=== PATIENT | male | born 1985 | race Caucasian/White ===

== ENCOUNTER 2024-07-23 15:06 | Emergency (ER) | payer OTHER, SELFPAY ==
[2024-07-23] VITALS (14 sets, daily range): BP systolic 116–142; BP diastolic 74–99; PULSE 87–112; RESP 13–24; TEMP 36.9–37.4; O2SAT 93–100
--- NOTE | 2024-07-23 15:55 | EKG_ITS ---
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
[2024-07-23 16:09] LABS: Appearance Urine UA CLEAR; Bilirubin Urine UA NEGATIVE (NEGATIVE); Color Urine UA YELLOW; Glucose Urine UA NEGATIVE (Negative); Ketones Urine UA NEGATIVE (NEGATIVE); Leukocyte Esterase Urine UA NEGATIVE (NEGATIVE); Nitrite Urine UA NEGATIVE (Negative); Occult Blood Urine UA TRACE-INTACT (Negative); Protein Urine UA NEGATIVE (Negative); Specific Gravity Urine UA <=1.005 (1.000-1.035); Urobilinogen Urine UA 0.2 E.U./dL (0.2)
[2024-07-23 16:11] LABS: Ur Creatinine Normal (Normal); Ur Specific Gravity Normal (Normal); Urine THC Negative (Negative); Urine pH Normal (Normal)
[2024-07-23 16:12] LABS: Urine Amphetamines Negative (Negative); Urine Barbiturates Negative (Negative); Urine Benzodiazepines Positive (Negative); Urine Cocaine Negative (Negative); Urine MDMA Negative (Negative); Urine Methadone Negative (Negative); Urine Opiates Negative (Negative); Urine Oxycodone Negative (Negative); Urine Phencyclidine Negative (Negative); Urine Tricyclic Antidepressant Negative (Negative)
[2024-07-23 16:14] LABS: Bacteria Urine Occasional (0-1); RBC Urine 0-1/HPF (0-5/HPF); Squamous Epithelial Cell Urine 0-1 /HPF (0-5/HPF); Urine Volume 10mL (spun); WBC Urine 0-1/HPF (0-5/HPF)
[2024-07-23 16:15] LABS: Culture Indicated Urine Cult Not Indicated
[2024-07-23 16:18] LABS: Add Manual Diff / Slide Review NO; Basophils Absolute Auto 200 /uL (0-100); Basophils Percent Auto 2.1 % (0-2); Eosinophils Absolute Auto 200 /uL (0-450); Eosinophils Percent Auto 2.2 % (2-4); Hematocrit 46.6 % (41-53); Hemoglobin 15.9 g/dL (13.5-17.5); Lymphocytes Absolute Auto 2700 /uL (1100-4500); Lymphocytes Percent Auto 32.9 % (25-40); Mean Corpuscular HGB Conc 34.1 % (30-36); Mean Corpuscular Hemoglobin 31.7 PG (26-34); Monocytes Absolute Auto 800 /uL (0-900); Neutrophils Absolute Auto 4400 /uL (1500-7000); Neutrophils Percent Auto 52.8 % (50-75); Platelet Count 408 X10^3/uL (150-400); Red Blood Cell Count 5.01 X10^6/uL (4.5-5.9); Red Cell Distribution Width 15.1 % (11.6-14.8); White Blood Cell Count 8.3 X10^3/uL (4.5-11.0)
[2024-07-23 16:24] LABS: Acetaminophen < 10 ug/mL (10-30); Alanine Aminotransferase 49 IU/L (<50); Albumin 5.1 g/dL (3.5-5.0); Albumin Globulin Ratio 1.5 (1.0-2.8); Alkaline Phosphatase 89 U/L (38-126); Aspartate Aminotransferase 53 IU/L (17-59); Bilirubin Total 0.6 mg/dL (0.2-1.3); Blood Urea Nitrogen 7 mg/dL (9-20); Calcium 9.2 mg/dL (8.4-10.2); Carbon Dioxide 23 mmol/L (22-32); Chloride 101 mmol/L (98-107); Estimated Glomerular Filt Rate > 60 mL/min (>60); Globulin 3.3 g/dL (1.7-4.1); Glucose 118 mg/dL (70-99); HEMOLYSIS 17 (0-50); Potassium 4.7 mmol/L (3.4-5.1); Salicylate < 1.0 mg/dL (<20); Sodium 140 mmol/L (137-145); Total Protein 8.4 g/dL (6.3-8.2)
[2024-07-23] MEDS: PHENobarbital 65 MG/ML VIAL 260 MG IV (16:29)
[2024-07-23 16:31] LABS: Ethanol (ETOH) 350 mg/dL
[2024-07-23] MEDS: LACTATED RINGERS 1,000 ML 1000 ML IV (16:33)
[2024-07-23 16:45] LABS: Free T4, Direct Thyroxine 1.03 ng/dL (0.78-2.19)
--- NOTE | 2024-07-23 16:49 | PC.NURSE ---
Pt brought to ED today by friend for ETOH detox. Pt states that he has been trying to ween himself off ETOH and today he drank more than he has in the past few days. Pt reports that he normally drinks 1/5 of vodka per day. Arrived to dept rigorous & diaphoretic. Pt having difficulty answering questions when he arrived to dept but has since resolved. Pt a&ox4 at this time, easily arousable, responds appropriately and answers all questions. Pt states that his friend has found a detox bed for him in [place].
--- NOTE | 2024-07-23 16:50 | ED_ITS ---
HPI - Alcohol <Bernarda Joe DO - Last Filed: 07/24/24 09:05> General Chief Complaint: Toxicology Problem Stated Complaint: alcohol detox Time Seen by Provider: 07/23/24 16:50 Source: patient, RN notes reviewed and old records reviewed Mode of arrival: Ambulatory Limitations: no limitations History of Present Illness HPI narrative: 39-year-old male history of alcohol use, neurofibromatosis type 1, depression who presents with complaint of alcohol abuse and withdrawal. Patient states he would like to stop drinking he states his last drink was early this morning. He states he has been drinking about a 5th daily. States he was sober for several years but his fiancee at the time and he has since started drinking it. State he has been having tremors and shakes, nausea and vomiting, feeling sweaty, denies any chest pain or shortness of breath. Denies any abdominal back or flank pain. Denies any loss of bowel or bladder control. Patient states he has a remote history of a seizure related to alcohol withdrawal a long time ago, has not had any hallucinations or seizure activity. Patient states he was supposed to be on citalopram daily. 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 He was 1 that is being followed close to his sacrum. States no known drug allergies. Vapes tobacco occasionally, states marijuana denies any IV or other recreational drugs. Patient states his friend that brought him found a bed for him during our evaluation at a detox facility but that he was supposed to be there by 6:00 p.m.. Related Data Allergies Allergy/AdvReac Type Severity Reaction Status Date / Time No Known Drug Allergies Allergy Verified 07/23/24 15:12 Review of Systems <Bernarda Joe DO - Last Filed: 07/24/24 09:05> Review of Systems ROS Unobtainable: All systems reviewed & are unremarkable except as noted in HPI and below Patient History <Bernarda Joe DO - Last Filed: 07/24/24 09:05> Social History Smoking Status: Unknown if ever smoked Smoking Status: Unknown if ever smoked Exam <Bernarda Joe DO - Last Filed: 07/24/24 09:05> Narrative Exam Narrative: GENERAL: Alert and oriented x three, male in mild distress. Patient is mildly disheveled. Patient had already received phenobarbital. HEENT: Head normocephalic, atraumatic, EOMI, pupils reactive, face symmetric, moist mucous membranes NECK: Supple, full range of motion CARDIOVASCULAR: Slightly tachycardic but Regular rate and rhythm without murmurs, rubs or gallops. No JVD. No edema bilateral lower extremities. RESPIRATORY: Breath sounds equal bilaterally, no wheezes rales or rhonchi. No tachypnea accessory muscle use. ABDOMEN: Soft, nontender. Normoactive bowel sounds all 4 quadrants. No guarding or rebound, rigidity, no mass : No CVA tenderness EXTREMITIES: Normal range of motion, no clubbing or edema. Neurovascularly intact NEUROLOGICAL: Cranial nerves II through XII grossly intact. Moving all extremities SKIN: Warm, dry, no petechiae, no rashes or lesions. Initial Vital Signs Initial Vital Signs: Vital Signs Temperature 99.4 F 07/23/24 15:14 Respiratory Rate 07/23/24 15:14 Pulse Oximetry 100 07/23/24 15:14 Oxygen Delivery Method Room Air 07/23/24 15:14 <Jonny Elizalde, DO - Last Filed: 07/23/24 21:22> Initial Vital Signs Initial Vital Signs: Vital Signs Temperature 99.4 F 07/23/24 15:14 Respiratory Rate 07/23/24 15:14 Pulse Oximetry 100 07/23/24 15:14 Oxygen Delivery Method Room Air 07/23/24 15:14 Course <Bernarda Joe, DO - Last Filed: 07/24/24 09:05> Orders Ordered: Discontinued Medications Lactated Ringer's (Lactated Ringers) 1,000 mls @ 1,000 mls/hr IV BOLUS ONE Stop: 07/23/24 17:19 Last Infusion: 07/23/24 17:37 Dose: Infused Documented By: Admin: 07/23/24 16:33 Dose: 1,000 mls/hr Documented By: NOAH Ondansetron HCl (Ondansetron 4 Mg/2 Ml Inj) 4 mg IV NOW ONE Stop: 07/23/24 16:09 Last Admin: 07/23/24 18:39 Dose: Not Given Documented By: KELBY Phenobarbital (Phenobarbital 65 Mg/Ml Vial) 260 mg IV NOW ONE Stop: 07/23/24 16:21 Last Admin: 07/23/24 16:29 Dose: 260 mg Documented By: NOAH Vital Signs Vital signs: Vital Signs - 8 hr 07/23/24 15:14 07/23/24 15:35 07/23/24 15:41 Temperature 99.4 F 98.4 F Pulse Rate 105 H 103 H Respiratory Rate 24 14 23 Blood Pressure 142/90 H Pulse Oximetry 100 93 96 Oxygen Delivery Method Room Air Room Air 07/23/24 16:00 07/23/24 16:01 07/23/24 16:01 Temperature Pulse Rate 109 H 112 H Respiratory Rate 24 21 Blood Pressure 142/99 H Pulse Oximetry 96 95 Oxygen Delivery Method 07/23/24 16:30 07/23/24 16:30 07/23/24 17:00 Temperature Pulse Rate 97 H Respiratory Rate 20 Blood Pressure 131/81 133/85 Pulse Oximetry 95 Oxygen Delivery Method 07/23/24 17:00 07/23/24 17:30 07/23/24 17:30 Temperature Pulse Rate 92 H 90 Respiratory Rate 17 20 Blood Pressure 124/84 Pulse Oximetry 94 96 Oxygen Delivery Method 07/23/24 18:00 07/23/24 18:00 07/23/24 18:30 Temperature Pulse Rate 87 94 H Respiratory Rate 17 13 Blood Pressure 119/78 118/78 Pulse Oximetry 95 97 Oxygen Delivery Method Room Air 07/23/24 19:00 07/23/24 19:30 07/23/24 20:00 Temperature Pulse Rate 92 H 91 H 99 H Respiratory Rate 16 21 18 Blood Pressure 119/74 116/81 Pulse Oximetry 96 Oxygen Delivery Method 07/23/24 20:30 Temperature Pulse Rate 107 H Respiratory Rate 16 Blood Pressure Pulse Oximetry Oxygen Delivery Method <Jonny Elizalde, DO - Last Filed: 07/23/24 21:22> Orders Ordered: Discontinued Medications Lactated Ringer's (Lactated Ringers) 1,000 mls @ 1,000 mls/hr IV BOLUS ONE Stop: 07/23/24 17:19 Last Infusion: 07/23/24 17:37 Dose: Infused Documented By: Admin: 07/23/24 16:33 Dose: 1,000 mls/hr Documented By: NOAH Ondansetron HCl (Ondansetron 4 Mg/2 Ml Inj) 4 mg IV NOW ONE Stop: 07/23/24 16:09 Last Admin: 07/23/24 18:39 Dose: Not Given Documented By: SB Phenobarbital (Phenobarbital 65 Mg/Ml Vial) 260 mg IV NOW ONE Stop: 07/23/24 16:21 Last Admin: 07/23/24 16:29 Dose: 260 mg Documented By: MPO Vital Signs Vital signs: Vital Signs - 8 hr 07/23/24 15:14 07/23/24 15:35 07/23/24 15:41 Temperature 99.4 F 98.4 F Pulse Rate 105 H 103 H Respiratory Rate 24 14 23 Blood Pressure 142/90 H Pulse Oximetry 100 93 96 Oxygen Delivery Method Room Air Room Air 07/23/24 16:00 07/23/24 16:01 07/23/24 16:01 Temperature Pulse Rate 109 H 112 H Respiratory Rate 24 21 Blood Pressure 142/99 H Pulse Oximetry 96 95 Oxygen Delivery Method 07/23/24 16:30 07/23/24 16:30 07/23/24 17:00 Temperature Pulse Rate 97 H Respiratory Rate 20 Blood Pressure 131/81 133/85 Pulse Oximetry 95 Oxygen Delivery Method 07/23/24 17:00 07/23/24 17:30 07/23/24 17:30 Temperature Pulse Rate 92 H 90 Respiratory Rate 17 20 Blood Pressure 124/84 Pulse Oximetry 94 96 Oxygen Delivery Method 07/23/24 18:00 07/23/24 18:00 07/23/24 18:30 Temperature Pulse Rate 87 94 H Respiratory Rate 17 13 Blood Pressure 119/78 118/78 Pulse Oximetry 95 97 Oxygen Delivery Method Room Air 07/23/24 19:00 07/23/24 19:30 07/23/24 20:00 Temperature Pulse Rate 92 H 91 H 99 H Respiratory Rate 16 21 18 Blood Pressure 119/74 116/81 Pulse Oximetry 96 Oxygen Delivery Method 07/23/24 20:30 Temperature Pulse Rate 107 H Respiratory Rate 16 Blood Pressure Pulse Oximetry Oxygen Delivery Method MDM - Alcohol <Bernarda Joe, - Last Filed: 07/24/24 09:05> Lab Data 07/23/24 15:35 07/23/24 15:35 Labs: Lab Results 07/23/24 07/23/24 07/23/24 Range/Units 15:35 15:56 15:56 WBC 8.3 (4.5-11.0) X10^3/uL RBC 5.01 (4.5-5.9) X10^6/uL Hgb 15.9 (13.5-17.5) g/dL Hct 46.6 (41-53) % MCV 93.0 (80-100) fL MCH 31.7 (26-34) PG MCHC 34.1 (30-36) % RDW 15.1 H (11.6-14.8) % Plt Count 408 H (150-400) X10^3/uL Neut % (Auto) 52.8 (50-75) % Lymph % (Auto) 32.9 (25-40) % [place] % (Auto) 10.0 (3-14) % Eos % (Auto) 2.2 (2-4) % Baso % (Auto) 2.1 H (0-2) % Neut # (Auto) 4400 (1952-3276) /uL Lymph # (Auto) 2700 (7464-9843) /uL [place] # (Auto) 800 (0-900) /uL Eos # (Auto) 200 (0-450) /uL Baso # (Auto) 200 H (0-100) /uL Sodium 140 (137-145) mmol/L Potassium 4.7 (3.4-5.1) mmol/L Chloride 101 (98-107) mmol/L Carbon Dioxide 23 (22-32) mmol/L BUN 7 L (9-20) mg/dL Creatinine 0.88 (0.66-1.25) mg/dL Estimated GFR > 60 (>60) mL/min BUN/Creatinine Ratio 8.0 (6-22) Glucose 118 H (70-99) mg/dL Calcium 9.2 (8.4-10.2) mg/dL Total Bilirubin 0.6 (0.2-1.3) mg/dL AST 53 (17-59) IU/L ALT 49 (<50) IU/L Alkaline Phosphatase 89 (38-126) U/L Total Protein 8.4 H (6.3-8.2) g/dL Albumin 5.1 H (3.5-5.0) g/dL Globulin 3.3 (1.7-4.1) g/dL Albumin/Globulin Ratio 1.5 (1.0-2.8) TSH 0.311 L (0.47-4.68) uIU/mL Free T4 1.03 (0.78-2.19) ng/dL Urine Color Yellow Urine Appearance Clear Urine pH 6.0 Normal (4.5-8.0) Ur Specific [place] <=1.005 (1.000-1.035) Urine Protein Negative (Negative) Urine Glucose (UA) Negative (Negative) g/dL Urine Ketones Negative (NEGATIVE) Urine Occult Blood Trace-intact (Negative) Urine Nitrate Negative (Negative) Urine Bilirubin Negative (NEGATIVE) Urine Urobilinogen 0.2 (0.2) E.U./dL Ur Leukocyte Esterase Negative (NEGATIVE) Urine RBC 0-1/hpf (0-5/HPF) Urine WBC 0-1/hpf (0-5/HPF) Ur Squamous Epith Cells 0-1 /hpf (0-5/HPF) Urine Bacteria Occasional (0-1) (None) Ur Culture Indicated? Cult not indicated Vol Urine Centrifuged 10ml (spun) Salicylates < 1.0 (<20) mg/dL U Opiates 300ng/mL cut Negative (Negative) Ur Oxycodone Screen Negative (Negative) Urine Methadone Screen Negative (Negative) Acetaminophen < 10 (10-30) ug/mL Ur Barbiturates Screen Negative (Negative) U Tricyclic Antidepress Negative (Negative) Ur Phencyclidine Scrn Negative (Negative) Ur Amphetamines Screen Negative (Negative) U Methamphetamines Scrn Negative (Negative) Ur MDMA Scrn (Ecstasy) Negative (Negative) U Benzodiazepines Scrn Positive H (Negative) Urine Cocaine Screen Negative (Negative) U Marijuana (THC) Screen Negative (Negative) Urine Specific [place] Normal (Normal) Ethyl Alcohol 350 H ( - 10) mg/dL Ur Creatinine Normal (Normal) 07/23/24 Range/Units 19:00 WBC (4.5-11.0) X10^3/uL RBC (4.5-5.9) X10^6/uL Hgb (13.5-17.5) g/dL Hct (41-53) % MCV (80-100) fL MCH (26-34) PG MCHC (30-36) % RDW (11.6-14.8) % Plt Count (150-400) X10^3/uL Neut % (Auto) (50-75) % Lymph % (Auto) (25-40) % [place] % (Auto) (3-14) % Eos % (Auto) (2-4) % Baso % (Auto) (0-2) % Neut # (Auto) (4539-9283) /uL Lymph # (Auto) (5490-7327) /uL [place] # (Auto) (0-900) /uL Eos # (Auto) (0-450) /uL Baso # (Auto) (0-100) /uL Sodium (137-145) mmol/L Potassium (3.4-5.1) mmol/L Chloride (98-107) mmol/L Carbon Dioxide (22-32) mmol/L BUN (9-20) mg/dL Creatinine (0.66-1.25) mg/dL Estimated GFR (>60) mL/min BUN/Creatinine Ratio (6-22) Glucose (70-99) mg/dL Calcium (8.4-10.2) mg/dL Total Bilirubin (0.2-1.3) mg/dL AST (17-59) IU/L ALT (<50) IU/L Alkaline Phosphatase (38-126) U/L Total Protein (6.3-8.2) g/dL Albumin (3.5-5.0) g/dL Globulin (1.7-4.1) g/dL Albumin/Globulin Ratio (1.0-2.8) TSH (0.47-4.68) uIU/mL Free T4 (0.78-2.19) ng/dL Urine Color Urine Appearance Urine pH (4.5-8.0) Ur Specific [place] (1.000-1.035) Urine Protein (Negative) Urine Glucose (UA) (Negative) g/dL Urine Ketones (NEGATIVE) Urine Occult Blood (Negative) Urine Nitrate (Negative) Urine Bilirubin (NEGATIVE) Urine Urobilinogen (0.2) E.U./dL Ur Leukocyte Esterase (NEGATIVE) Urine RBC (0-5/HPF) Urine WBC (0-5/HPF) Ur Squamous Epith Cells (0-5/HPF) Urine Bacteria (None) Ur Culture Indicated? Vol Urine Centrifuged Salicylates (<20) mg/dL U Opiates 300ng/mL cut (Negative) Ur Oxycodone Screen (Negative) Urine Methadone Screen (Negative) Acetaminophen (10-30) ug/mL Ur Barbiturates Screen (Negative) U Tricyclic Antidepress (Negative) Ur Phencyclidine Scrn (Negative) Ur Amphetamines Screen (Negative) U Methamphetamines Scrn (Negative) Ur MDMA Scrn (Ecstasy) (Negative) U Benzodiazepines Scrn (Negative) Urine Cocaine Screen (Negative) U Marijuana (THC) Screen (Negative) Urine Specific [place] (Normal) Ethyl Alcohol 264 H ( - 10) mg/dL Ur Creatinine (Normal) ECG Data Attestation: I personally reviewed and interpreted this ECG as follows: Prior ECG tracings: available for review Interpretation: Sinus tachycardia rate of 110, VT 114 QRS is 78 QTC of 443, no acute ST elevation. No prior for comparison MDM Narrative Medical decision making narrative: EKG shows sinus tachycardia. ETOH is positive at 350, Tylenol and salicylate are negative, UDS is positive for benzos. Labs show normal white count hemoglobin, platelets of 408. Electrolytes, appropriate BUN 7 creatinine 0.88 glucose is 118 LFTs are overall appropriate total protein is 8.4 albumin 5.1 TSH is 0.311, free T4 is 1.03. UA shows trace blood, 1 red cell 1 white cell 1 squamous occasional bacteria. Patient is medically cleared for detox. [facility] has potential beds we will review after 7:00 p.m.. They typically require ETOH to be less than 250. Patient is agreeable and found bed with his friend on their own. Patient had lactated Ringer's 1 L as well as phenobarbital 260 mg. Patient is feeling much improved afterwards his vitals have improved overall. Patient signed to Dr. Elizalde while awaiting potential detox bed. <Jonny Elizalde, DO - Last Filed: 07/23/24 21:22> Lab Data Labs: Lab Results 07/23/24 07/23/24 07/23/24 Range/Units 15:35 15:56 15:56 WBC 8.3 (4.5-11.0) X10^3/uL RBC 5.01 (4.5-5.9) X10^6/uL Hgb 15.9 (13.5-17.5) g/dL Hct 46.6 (41-53) % MCV 93.0 (80-100) fL MCH 31.7 (26-34) PG MCHC 34.1 (30-36) % RDW 15.1 H (11.6-14.8) % Plt Count 408 H (150-400) X10^3/uL Neut % (Auto) 52.8 (50-75) % Lymph % (Auto) 32.9 (25-40) % [place] % (Auto) 10.0 (3-14) % Eos % (Auto) 2.2 (2-4) % Baso % (Auto) 2.1 H (0-2) % Neut # (Auto) 4400 (3430-8820) /uL Lymph # (Auto) 2700 (0564-3672) /uL [place] # (Auto) 800 (0-900) /uL Eos # (Auto) 200 (0-450) /uL Baso # (Auto) 200 H (0-100) /uL Sodium 140 (137-145) mmol/L Potassium 4.7 (3.4-5.1) mmol/L Chloride 101 (98-107) mmol/L Carbon Dioxide 23 (22-32) mmol/L BUN 7 L (9-20) mg/dL Creatinine 0.88 (0.66-1.25) mg/dL Estimated GFR > 60 (>60) mL/min BUN/Creatinine Ratio 8.0 (6-22) Glucose 118 H (70-99) mg/dL Calcium 9.2 (8.4-10.2) mg/dL Total Bilirubin 0.6 (0.2-1.3) mg/dL AST 53 (17-59) IU/L ALT 49 (<50) IU/L Alkaline Phosphatase 89 (38-126) U/L Total Protein 8.4 H (6.3-8.2) g/dL Albumin 5.1 H (3.5-5.0) g/dL Globulin 3.3 (1.7-4.1) g/dL Albumin/Globulin Ratio 1.5 (1.0-2.8) TSH 0.311 L (0.47-4.68) uIU/mL Free T4 1.03 (0.78-2.19) ng/dL Urine Color Yellow Urine Appearance Clear Urine pH 6.0 Normal (4.5-8.0) Ur Specific [place] <=1.005 (1.000-1.035) Urine Protein Negative (Negative) Urine Glucose (UA) Negative (Negative) g/dL Urine Ketones Negative (NEGATIVE) Urine Occult Blood Trace-intact (Negative) Urine Nitrate Negative (Negative) Urine Bilirubin Negative (NEGATIVE) Urine Urobilinogen 0.2 (0.2) E.U./dL Ur Leukocyte Esterase Negative (NEGATIVE) Urine RBC 0-1/hpf (0-5/HPF) Urine WBC 0-1/hpf (0-5/HPF) Ur Squamous Epith Cells 0-1 /hpf (0-5/HPF) Urine Bacteria Occasional (0-1) (None) Ur Culture Indicated? Cult not indicated Vol Urine Centrifuged 10ml (spun) Salicylates < 1.0 (<20) mg/dL U Opiates 300ng/mL cut Negative (Negative) Ur Oxycodone Screen Negative (Negative) Urine Methadone Screen Negative (Negative) Acetaminophen < 10 (10-30) ug/mL Ur Barbiturates Screen Negative (Negative) U Tricyclic Antidepress Negative (Negative) Ur Phencyclidine Scrn Negative (Negative) Ur Amphetamines Screen Negative (Negative) U Methamphetamines Scrn Negative (Negative) Ur MDMA Scrn (Ecstasy) Negative (Negative) U Benzodiazepines Scrn Positive H (Negative) Urine Cocaine Screen Negative (Negative) U Marijuana (THC) Screen Negative (Negative) Urine Specific [place] Normal (Normal) Ethyl Alcohol 350 H ( - 10) mg/dL Ur Creatinine Normal (Normal) 07/23/24 Range/Units 19:00 WBC (4.5-11.0) X10^3/uL RBC (4.5-5.9) X10^6/uL Hgb (13.5-17.5) g/dL Hct (41-53) % MCV (80-100) fL MCH (26-34) PG MCHC (30-36) % RDW (11.6-14.8) % Plt Count (150-400) X10^3/uL Neut % (Auto) (50-75) % Lymph % (Auto) (25-40) % [place] % (Auto) (3-14) % Eos % (Auto) (2-4) % Baso % (Auto) (0-2) % Neut # (Auto) (8394-9165) /uL Lymph # (Auto) (5162-6649) /uL [place] # (Auto) (0-900) /uL Eos # (Auto) (0-450) /uL Baso # (Auto) (0-100) /uL Sodium (137-145) mmol/L Potassium (3.4-5.1) mmol/L Chloride (98-107) mmol/L Carbon Dioxide (22-32) mmol/L BUN (9-20) mg/dL Creatinine (0.66-1.25) mg/dL Estimated GFR (>60) mL/min BUN/Creatinine Ratio (6-22) Glucose (70-99) mg/dL Calcium (8.4-10.2) mg/dL Total Bilirubin (0.2-1.3) mg/dL AST (17-59) IU/L ALT (<50) IU/L Alkaline Phosphatase (38-126) U/L Total Protein (6.3-8.2) g/dL Albumin (3.5-5.0) g/dL Globulin (1.7-4.1) g/dL Albumin/Globulin Ratio (1.0-2.8) TSH (0.47-4.68) uIU/mL Free T4 (0.78-2.19) ng/dL Urine Color Urine Appearance Urine pH (4.5-8.0) Ur Specific [place] (1.000-1.035) Urine Protein (Negative) Urine Glucose (UA) (Negative) g/dL Urine Ketones (NEGATIVE) Urine Occult Blood (Negative) Urine Nitrate (Negative) Urine Bilirubin (NEGATIVE) Urine Urobilinogen (0.2) E.U./dL Ur Leukocyte Esterase (NEGATIVE) Urine RBC (0-5/HPF) Urine WBC (0-5/HPF) Ur Squamous Epith Cells (0-5/HPF) Urine Bacteria (None) Ur Culture Indicated? Vol Urine Centrifuged Salicylates (<20) mg/dL U Opiates 300ng/mL cut (Negative) Ur Oxycodone Screen (Negative) Urine Methadone Screen (Negative) Acetaminophen (10-30) ug/mL Ur Barbiturates Screen (Negative) U Tricyclic Antidepress (Negative) Ur Phencyclidine Scrn (Negative) Ur Amphetamines Screen (Negative) U Methamphetamines Scrn (Negative) Ur MDMA Scrn (Ecstasy) (Negative) U Benzodiazepines Scrn (Negative) Urine Cocaine Screen (Negative) U Marijuana (THC) Screen (Negative) Urine Specific [place] (Normal) Ethyl Alcohol 264 H ( - 10) mg/dL Ur Creatinine (Normal) MDM Narrative Medical decision making narrative: EKG shows sinus tachycardia. ETOH is positive at 350, Tylenol and salicylate are negative, UDS is positive for benzos. Labs show normal white count hemoglobin, platelets of 408. Electrolytes, appropriate BUN 7 creatinine 0.88 glucose is 118 LFTs are overall appropriate total protein is 8.4 albumin 5.1 TSH is 0.311, free T4 is 1.03. UA shows trace blood, 1 red cell 1 white cell 1 squamous occasional bacteria. Patient is medically cleared for detox. [facility] has potential beds we will review after 7:00 p.m.. They typically require ETOH to be less than 250. Patient is agreeable and found bed with his friend on their own. Patient had lactated Ringer's 1 L as well as phenobarbital 260 mg. Patient is feeling much improved afterwards his vitals have improved overall. Patient signed to Dr. Elizalde while awaiting potential detox bed. Patient given phenobarbital lactated ringer here and was adamant on leaving despite being told that his alcohol level is 3 times the level it is now and needs to be less than 250. Initially stated that he was going to have a friend come pick him up but his friend did not want to come in to the hospital so we can physically confirm his friend was going to pick him up. We offered to call the friend to speak with them but the patient refused. Patient has signed form stating that once he leaves the property he was given medications that could put him at risk for safety to himself and others and that the police will be notified yet he was agreeable he was still going to leave. The detox center at [facility] will not take him with positive benzodiazepine in his system. He states he is going to go to [place] to see if he can go to detox center there. Discharge Plan Departure Patient Disposition: Elopement Clinical Impression: Alcohol withdrawal syndrome Qualifiers: Complication of substance-induced condition: uncomplicated Qualified Code(s): F 10930 - Alcohol use, unspecified with withdrawal, uncomplicated
[2024-07-23 16:59] LABS: Thyroid Stimulating Hormone 0.311 uIU/mL (0.47-4.68)
--- NOTE | 2024-07-23 17:58 | CM.SWNOTE ---
ED PIPELINE EXECUTIVE Note Patient presents to ED seeking ETOH detox. claims account manager and RN inform PIPELINE EXECUTIVE that patient conducted [facility] phone screening, and MARKETING/SALES PERSON faxed records for review. Patient's BAL is 350 at this time and [facility] can review patient further after 1900. Per RN and foam charger there are no needs from PIPELINE EXECUTIVE at this time. PIPELINE EXECUTIVE to follow if needs arise. Plan: [facility] reviewing patient for detox treatment. Leticia Campbell, TEST WORKER
--- NOTE | 2024-07-23 18:55 | PC.NURSE ---
Chest rise and fall observed. Easily arousable. A&Ox4.
[2024-07-23 19:16] LABS: Ethanol (ETOH) 264 mg/dL
--- NOTE | 2024-07-23 19:31 | PC.NURSE ---
Pt states a friend of his is on the way to pick him up and take him to another doctor for inpatient treatment and I'd like to be discharged immediately! Informed pt that doctor is currently in a room with a critical patient and for a proper discharge with paperwork he would need to wait until the provider is available. Pt again states I need this done immediately!
--- NOTE | 2024-07-23 20:16 | PC.NURSE ---
[facility] contacted again after repeat etoh level resulted. Staff at [facility] expressed concern about patient's urine drug screen being positive for benzo's. Patient did not receive any benzo's by nursing staff during this encounter. [facility] staff state that if patient can provide proof of prescription that he takes benzodiazepines regularly then they can continue the intake process. This RN entered patient's room to ask if he takes any prescribed medications. Patient reports taking citalopram and clonazepam. He states he gets these medications from his primary doctor and last filled at the [facility] in [place]. At this time patient also expresses wanting to leave ER now and no longer wanting to go to [facility]. Patient states his ride is here or will be soon and that he will get a ride with him to [place] and get help from family to get into a detox facility in [place] tomorrow. 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 Patient states his friend will not come into the ER, because he doesn't like to socialize. This RN asked if patient could call him and ask him to drive to front of ER so staff could meet him out front, patient states his phone is on low battery so he turned it off. Patient was offered phone charging cord, but patient refuses to charge phone to be able to contact friend. This RN asked if staff could call his ride and patient states no, he doesn't want to talk to people. This RN explained that patient's alcohol level is 264mg/dL and he received a dose of phenobarbital while in ER, which can cause drowsiness, and a responsible/safe person has to come to ER and present themselves to ER staff prior to being discharged. Patient states his ride will not come into ER, stating he's not that kind of person. Patient refuses to give staff his ride's number so we can contact him and explain process to discharge patient. MD arrives to bedside to explain this again. Patient states that he is just going to walk out. MD explained to patient that police would be called and made aware that he left ER while intoxicated and under influence of sedative medication and at risk for injuring self or others. Patient states, fine, then call the police. MD and nursing staff again encourage patient to contact his ride to come into the ER. Staff left patient in his room with cell phone chargers available at bedside. Patient removed cardiac/respiratory monitor and now is sitting at edge of bed. Staff closely watching patient and hospital security updated on this situation.
--- NOTE | 2024-07-23 21:15 | PC.NURSE ---
Patient continues to be adamant about leaving ER and refusing to contact his ride to ensure staff that he has a safe/responsible motor bus driver. MD and nursing staff at bedside with patient discussing policy and process again. Patient signed [employer] Driving Against Medical Advice Release with RN and provider. Patient aware that [employer] will be contacted once he leaves ER r/t concerns for patients safety and public safety. Patient states understanding. Patient's IV was removed previously by another staff member. Patient ambulatory leaving ER at approximately 0. Security notified and observing patient while he walks slowly in parking lot. [employer] notified about situation and staff concerns. It was reported to this RN by [employer] that [employer] did contact patient in person while he was in parking lot and [employer] were able to speak with patient's motor bus driver on the phone. It is expected that patient will have a ride to pick him up soon. [employer] later came to ER nurses station to report to this RN that he witnessed patient get into a black vehicle as a passenger and vehicle left partking lot.
--- NOTE | 2024-07-23 21:28 | PC.NURSE ---
Patient exited his room and walked out the main entrance doors. [employer] was called and alerted that the patient was intoxicated. The patient was told that he could not drive but was not going to let us visualize him getting a safe ride home. He was ambulatory when he left the department.
== END 2024-07-23 21:30 | disposition left against medical advice (07) ==
PROVIDERS: Emergency Medicine; Emergency Provider Family Medicine
DX: F10.939 Alcohol use, unspecified with withdrawal, unspecified (principal); Y90.8 Blood alcohol level of 240 mg/100 ml or more; Z53.29 Procedure and treatment not carried out because of patient's decision for other reasons
CPT/HCPCS: 80053; 80305; 80320; 80329; 81001; 84439; 84443; 85025; 93005; 96361; 96374; 96375; 99283; 99284; G0480; J2560